=== PATIENT | female | born 1935 | race Caucasian/White ===

== ENCOUNTER 2016-07-14 18:46 | Inpatient (IN) | payer OTHER, MEDICAID ==
[~2016-07-14] VITALS: Ht 152.4 cm; Wt 50.8 kg
[~2016-07-14 18:46] MED LIST: ISOS30TA6 PO; LEVO25TA58 PO; LISI-600 PO; LYR50 PO; OMEP20CA10 PO; SIMV20TA2 PO; TRAM50TA92 PO
[2016-07-14 18:50] VITALS: BP 120/77; PULSE 80; RESP 20; TEMP 98.7; O2SAT 95
[2016-07-14] MEDS ORDERED: NACL 0.9% 1,000 ML IV SCH (19:05)
[2016-07-14] MEDS ORDERED: IPRATROPIUM/ALBUTEROL SULFATE 3 ML AMPUL.NEB INH ONE (19:15)
[2016-07-14] MEDS ORDERED: methylPREDNISolone SOD SUCC/PF 62.5 MG/ML VIAL IVP ONE (19:15)
[2016-07-14 20:19] LABS: BASOPHILS % (AUTO) 0.4 % (0.0-2.0); EOSINOPHILS # (AUTO) 0.1 K/uL (0.0-0.4); EOSINOPHILS % (AUTO) 1.7 % (0.0-4.0); HEMATOCRIT 34.7 % (36-48); HEMOGLOBIN 11.8 g/dL (12.0-16.0); LYMPHOCYTES # (AUTO) 2.1 K/uL (1.0-5.5); LYMPHOCYTES % (AUTO) 28.6 % (20.5-51.5); MEAN CORPUSCULAR HEMOGLOBIN 30 pg (27-31); MEAN CORPUSCULAR HGB CONC 34 % (32-36); MEAN CORPUSCULAR VOLUME 89 fL (79.0-98.0); MONOCYTES # (AUTO) 0.5 K/uL (0.0-1.0); MONOCYTES % (AUTO) 7.3 % (1.7-9.3); NEUTROPHILS # (AUTO) 4.8 K/uL (1.8-7.7); PLATELET COUNT (AUTO) 168 K/uL (130-430); RED BLOOD CELL COUNT(AUTO) 3.88 MIL/uL (4.2-6.2); RED CELL DISTRIBUTION WIDTH 13.6 % (9.0-15.0); WHITE BLOOD COUNT (AUTO) 7.5 K/uL (4.8-10.8)
[2016-07-14 20:28] LABS: ANION GAP 9 (5-15); CALCIUM 9.4 mg/dL (8.4-11.0); CHLORIDE 101 mmol/L (98-107); CREATININE 0.78 mg/dL (0.55-1.30); GLUCOSE 103 mg/dL (70-99); POTASSIUM 3.8 mmol/L (3.5-5.1); SODIUM SERUM 139 mmol/L (136-145); UREA NITROGEN, BLOOD 13 mg/dL (8-21)
[2016-07-14 20:31] LABS: PROTHROMBIN TIME 11.1 SECS (9.5-12.5)
[2016-07-14 20:33] LABS: ALANINE AMINOTRANSFERASE 13 U/L (12-78); ALBUMIN 2.8 g/dL (3.4-4.8); ASPARTATE AMINOTRANSFERASE 13 U/L (10-37); TOTAL BILIRUBIN 0.4 mg/dL (0.0-1.0); TOTAL PROTEIN, SERUM 6.6 g/dL (6.4-8.3)
[2016-07-14] MEDS ORDERED: LEVOFLOXACIN 500 MG/D5W 100 ML IV ONE ×2 (20:45→22:00)
[2016-07-14 21:49] VITALS: BP 124/73; PULSE 82
[2016-07-14] MEDS: methylPREDNISolone SOD SUCC/PF 62.5 MG/ML VIAL IVP SCH (22:00)
[2016-07-14] MEDS: SIMVASTATIN 20 MG TABLET PO SCH (22:37)
[2016-07-14] MEDS: TEMAZEPAM 15 MG CAPSULE PO SCH (22:37)
[2016-07-14] MEDS: ALBUTEROL SULFATE 0.083% 2.5 MG/3 ML VIAL.NEB INH PRN (23:24)
[2016-07-14 23:42] LABS: BILIRUBIN,URINE NEGATIVE (NEGATIVE); BLOOD, URINE NEGATIVE (NEGATIVE); CLARITY/URINE CLEAR (CLEAR); COLOR,URINE YELLOW (YELLOW); GLUCOSE,URINE NEGATIVE (NEGATIVE); KETONES,URINE TRACE (NEGATIVE); LEUKOCYTE ESTERASE ,URINE NEGATIVE (NEGATIVE); NITRITE, URINE NEGATIVE (NEGATIVE); PROTEIN URINE NEGATIVE (NEGATIVE); UROBILINOGEN,URINE 0.2 (0.2-1.0)
[2016-07-15 01:01] VITALS: BP 117/52; PULSE 78; RESP 18; TEMP 98.5; O2SAT 97
[2016-07-15] MEDS: ALBUTEROL SULFATE 0.083% 2.5 MG/3 ML VIAL.NEB INH PRN ×2 (03:51→19:39)
[2016-07-15 04:38] VITALS: BP 112/70; PULSE 70; RESP 16; TEMP 98.9; O2SAT 97
[2016-07-15] MEDS: methylPREDNISolone SOD SUCC/PF 62.5 MG/ML VIAL IVP SCH (06:09)
[2016-07-15] MEDS: LEVOTHYROXINE SODIUM 0.025 MG TABLET PO SCH (06:12)
[2016-07-15 07:24] LABS: HEMATOCRIT 34.9 % (36-48); HEMOGLOBIN 11.6 g/dL (12.0-16.0); MEAN CORPUSCULAR HEMOGLOBIN 31 pg (27-31); MEAN CORPUSCULAR HGB CONC 33 % (32-36); MEAN CORPUSCULAR VOLUME 93 fL (79.0-98.0); PLATELET COUNT (AUTO) 159 K/uL (130-430); RED BLOOD CELL COUNT(AUTO) 3.77 MIL/uL (4.2-6.2); RED CELL DISTRIBUTION WIDTH 13.6 % (9.0-15.0)
[2016-07-15 07:47] LABS: ANION GAP 12 (5-15); CALCIUM 9.2 mg/dL (8.4-11.0); CHLORIDE 98 mmol/L (98-107); CREATININE 0.91 mg/dL (0.55-1.30); FREE T4 (FREE THYROXINE) 1.2 ng/dL (0.6-1.6); GLUCOSE 184 mg/dL (70-99); POTASSIUM 3.3 mmol/L (3.5-5.1); SODIUM SERUM 137 mmol/L (136-145); THYROID STIMULATING HORMONE 0.86 uIu/mL (0.34-4.82); UREA NITROGEN, BLOOD 13 mg/dL (8-21); WHITE BLOOD COUNT (AUTO) 3.8 K/uL (4.8-10.8)
[2016-07-15 08:28] VITALS: BP 113/90; PULSE 89; RESP 16; TEMP 98.7; O2SAT 100
[2016-07-15] MEDS: ISOSORBIDE MONONITRATE 30 MG TAB.ER.24H PO SCH (09:32)
[2016-07-15] MEDS: OMEPRAZOLE 20 MG CAPSULE.DR (PriLOSEC) PO SCH (09:32)
[2016-07-15] MEDS: PREGABALIN 25 MG CAPSULE (LYRICA) PO SCH ×2 (09:32→21:38)
[2016-07-15] MEDS: LISINOPRIL 20 MG TABLET PO SCH (09:32)
[2016-07-15] MEDS: LACTOBACILLUS RHAMNOSUS GG 1 CAP CAPSULE PO SCH ×2 (09:32→21:38)
[2016-07-15 09:44] LABS: ATYPICAL LYMPHOCYTES % 0 % (0-0); BAND % (MANUAL) 2 % (0-6); BASOPHILS % (MANUAL) 0 % (0-2); EOSINOPHILS % (MANUAL) 0 % (0-7); LYMPHOCYTES % (MANUAL) 8 % (20-46); MONOCYTES % (MANUAL) 0 % (0-11)
[2016-07-15] MEDS ORDERED: POTASSIUM CHLORIDE 20 MEQ TAB.PRT.SR PO ONE ×2 (10:15→13:00)
[2016-07-15] MEDS ORDERED: ENOXAPARIN SODIUM 40 MG/0.4 ML SYRINGE SUBCUT ONE (10:30)
[2016-07-15 12:00] VITALS: BP 100/38; PULSE 83; RESP 18; TEMP 97.2; O2SAT 97
[2016-07-15 16:00] VITALS: BP 107/48; PULSE 93; RESP 18; TEMP 97.7; O2SAT 96
[2016-07-15 20:15] VITALS: BP 92/51; PULSE 100; RESP 20; TEMP 98.1; O2SAT 94
[2016-07-15] MEDS: TEMAZEPAM 15 MG CAPSULE PO SCH (21:38)
[2016-07-15] MEDS: SIMVASTATIN 20 MG TABLET PO SCH (21:38)
[2016-07-15] MEDS: LEVOFLOXACIN 250 MG/D5W 50 ML IV SCH (21:38)
[2016-07-16] VITALS: BP 92/32; PULSE 88; RESP 17; TEMP 97.8; O2SAT 95
[2016-07-16 04:34] VITALS: BP 98/48; PULSE 82; RESP 18; TEMP 98.2; O2SAT 96
[2016-07-16] MEDS: LEVOTHYROXINE SODIUM 0.025 MG TABLET PO SCH (06:07)
[2016-07-16 06:56] LABS: HEMATOCRIT 33.4 % (36-48); HEMOGLOBIN 11.2 g/dL (12.0-16.0); MEAN CORPUSCULAR HEMOGLOBIN 31 pg (27-31); MEAN CORPUSCULAR HGB CONC 34 % (32-36); MEAN CORPUSCULAR VOLUME 93 fL (79.0-98.0); PLATELET COUNT (AUTO) 195 K/uL (130-430); RED CELL DISTRIBUTION WIDTH 13.3 % (9.0-15.0)
[2016-07-16 07:05] LABS: ANION GAP 4 (5-15); CALCIUM 9.1 mg/dL (8.4-11.0); CHLORIDE 107 mmol/L (98-107); CREATININE 0.71 mg/dL (0.55-1.30); GLUCOSE 101 mg/dL (70-99); POTASSIUM 4.6 mmol/L (3.5-5.1); SODIUM SERUM 141 mmol/L (136-145); UREA NITROGEN, BLOOD 23 mg/dL (8-21)
[2016-07-16 07:33] LABS: WHITE BLOOD COUNT (AUTO) 9.4 K/uL (4.8-10.8)
[2016-07-16 08:17] VITALS: BP 91/55; PULSE 77; RESP 18; TEMP 97; O2SAT 96
[2016-07-16] MEDS: ISOSORBIDE MONONITRATE 30 MG TAB.ER.24H PO SCH (09:00)
[2016-07-16] MEDS: LISINOPRIL 20 MG TABLET PO SCH (09:00)
[2016-07-16 09:47] LABS: ATYPICAL LYMPHOCYTES % 0 % (0-0); BAND % (MANUAL) 0 % (0-6); BASOPHILS % (MANUAL) 0 % (0-2); EOSINOPHILS % (MANUAL) 0 % (0-7); LYMPHOCYTES % (MANUAL) 14 % (20-46); MONOCYTES % (MANUAL) 5 % (0-11)
[2016-07-16 12:08] VITALS: BP 94/46; PULSE 83; RESP 18; TEMP 96.9; O2SAT 92
[2016-07-16] MEDS: PREDNISONE 20 MG TABLET PO SCH (12:11)
[2016-07-16] MEDS: ENOXAPARIN SODIUM 40 MG/0.4 ML SYRINGE SUBCUT SCH (12:11)
[2016-07-16] MEDS: LACTOBACILLUS RHAMNOSUS GG 1 CAP CAPSULE PO SCH ×2 (12:11→21:31)
[2016-07-16] MEDS: OMEPRAZOLE 20 MG CAPSULE.DR (PriLOSEC) PO SCH (12:11)
[2016-07-16] MEDS: PREGABALIN 25 MG CAPSULE (LYRICA) PO SCH ×2 (12:11→21:30)
[2016-07-16 16:13] VITALS: BP 93/51; PULSE 50; RESP 17; TEMP 97.7; O2SAT 91
[2016-07-16 16:32] VITALS: Ht 152.4 cm; Wt 50.8 kg
[2016-07-16 20:00] VITALS: BP 120/61; PULSE 91; RESP 20; TEMP 97.8; O2SAT 95
[2016-07-16] MEDS: TEMAZEPAM 15 MG CAPSULE PO SCH (21:30)
[2016-07-16] MEDS: SIMVASTATIN 20 MG TABLET PO SCH (21:30)
[2016-07-16] MEDS: traMADol HCL HCL 50 MG TABLET (ULTRAM) PO PRN (21:31)
[2016-07-16] MEDS: LEVOFLOXACIN 250 MG/D5W 50 ML IV SCH (23:15)
[2016-07-17] VITALS (8 sets, daily range): BP systolic 90–126; BP diastolic 37–63; PULSE 70–91; RESP 18–20; TEMP 96.6–98; O2SAT 93–98
[2016-07-17] MEDS: LEVOTHYROXINE SODIUM 0.025 MG TABLET PO SCH (06:11)
[2016-07-17] MEDS: traMADol HCL HCL 50 MG TABLET (ULTRAM) PO PRN ×2 (07:56→21:30)
[2016-07-17] MEDS: ENOXAPARIN SODIUM 40 MG/0.4 ML SYRINGE SUBCUT SCH ×2 (09:00→10:13)
[2016-07-17] MEDS: PREDNISONE 20 MG TABLET PO SCH (10:10)
[2016-07-17] MEDS: OMEPRAZOLE 20 MG CAPSULE.DR (PriLOSEC) PO SCH (10:10)
[2016-07-17] MEDS: LACTOBACILLUS RHAMNOSUS GG 1 CAP CAPSULE PO SCH ×2 (10:10→21:29)
[2016-07-17] MEDS: PREGABALIN 25 MG CAPSULE (LYRICA) PO SCH ×2 (10:11→21:30)
[2016-07-17] MEDS: LISINOPRIL 20 MG TABLET PO SCH (10:13)
[2016-07-17] MEDS: ISOSORBIDE MONONITRATE 30 MG TAB.ER.24H PO SCH (10:14)
[2016-07-17] MEDS: LEVOFLOXACIN 250 MG/D5W 50 ML IV SCH (21:29)
[2016-07-17] MEDS: SIMVASTATIN 20 MG TABLET PO SCH (21:30)
[2016-07-17] MEDS: TEMAZEPAM 15 MG CAPSULE PO SCH (21:30)
[2016-07-18] VITALS (7 sets, daily range): BP systolic 97–117; BP diastolic 52–62; PULSE 64–74; RESP 16–18; TEMP 96.8–98; O2SAT 93–97
[2016-07-18] MEDS: LEVOTHYROXINE SODIUM 0.025 MG TABLET PO SCH (06:11)
[2016-07-18] MEDS: ENOXAPARIN SODIUM 40 MG/0.4 ML SYRINGE SUBCUT SCH (09:47)
[2016-07-18] MEDS: OMEPRAZOLE 20 MG CAPSULE.DR (PriLOSEC) PO SCH (09:48)
[2016-07-18] MEDS: PREGABALIN 25 MG CAPSULE (LYRICA) PO SCH (09:48)
[2016-07-18] MEDS: ISOSORBIDE MONONITRATE 30 MG TAB.ER.24H PO SCH (09:48)
[2016-07-18] MEDS: LACTOBACILLUS RHAMNOSUS GG 1 CAP CAPSULE PO SCH (09:48)
[2016-07-18] MEDS: LISINOPRIL 20 MG TABLET PO SCH (09:49)
[2016-07-18] MEDS: PREDNISONE 20 MG TABLET PO SCH (09:49)
== END 2016-07-18 21:28 | disposition home health service (06) | DRG 190 ==
LOC: SED 18:46 → STU 20:55 → SMU 07-16 18:08
PROVIDERS: ADMIT Internal Medicine; ATTEND Internal Medicine
DX: J44.1 Chronic obstructive pulmonary disease with (acute) exacerbation (principal); E43 Unspecified severe protein-calorie malnutrition; J44.0 Chronic obstructive pulmonary disease with (acute) lower respiratory infection; J20.9 Acute bronchitis, unspecified; I10 Essential (primary) hypertension; G89.29 Other chronic pain; F03.90 Unspecified dementia, unspecified severity, without behavioral disturbance, psychotic disturbance, mood disturbance, and anxiety; E78.5 Hyperlipidemia, unspecified; E03.9 Hypothyroidism, unspecified; D64.9 Anemia, unspecified; K21.9 Gastro-esophageal reflux disease without esophagitis; Z96.611 Presence of right artificial shoulder joint; Z96.651 Presence of right artificial knee joint; M54.9 Dorsalgia, unspecified; Z68.21 Body mass index [BMI] 21.0-21.9, adult; Z88.6 Allergy status to analgesic agent; Z88.1 Allergy status to other antibiotic agents; Z88.0 Allergy status to penicillin; Z88.8 Allergy status to other drugs, medicaments and biological substances; Z87.891 Personal history of nicotine dependence; Z79.899 Other long term (current) drug therapy; Z87.440 Personal history of urinary (tract) infections
CPT/HCPCS: 36415; 71010; 80048; 80053; 81003; 83605; 84439; 84443-TC; 85007; 85025; 85027; 85610-TC; 85730-TC; 87040-TC; 87081; 92610-GN; 93005; 94640; 94760; 96361; 96374; 97110-GP; 97116-GP; 97530-GP; 99285; J1650; J1956; J2930; J7030; J7512

== ENCOUNTER 2017-06-16 14:33 | Emergency (ER) | payer OTHER, MEDICAID ==
[~2017-06-16] VITALS: Ht 152.4 cm; Wt 49.9 kg
[2017-06-16 14:35] VITALS: BP_SYST 130
--- NOTE | 2017-06-16 14:40 | NUR ---
ER at bedside examining patient.
--- NOTE | 2017-06-16 14:45 | NUR ---
Pt presents to ER c/o pain to L hand and L hip. EMT's state that pt fell out of chair. Pt reports pain level 5/10. Pt denies loss of consciousness, chest pain, sob. Pt comes from [facility]. Pt in no acute distress, AOX4, allergies noted.
--- NOTE | 2017-06-16 15:17 | NUR ---
SPOKE WITH NANCY AT [facility] AND [facility], UNABLE TO PROVIDE ANY TRANSPORTATION. NANCY STATES THAT SHE USUALLY GOES TO AND FROM HOSPITAL IN AMBULANCE.
[2017-06-16 16:00] VITALS: BP_SYST 130
--- NOTE | 2017-06-16 16:00 | NUR ---
Note undone in EDM - 06/16/17 at 1943 by [email or web address] Patient given written and verbal discharge instructions and verbalizes understanding. ER discussed with patient the results and treatment provided. Patient in stable condition. ID arm band removed. No Rx given. Patient educated on pain management and to follow up with PMD. Pain Scale 3/10. Opportunity for questions provided and answered.
--- NOTE | 2017-06-16 16:00 | NUR ---
Patient unable to sign discharge paperwork but given verbal discharge instructions and verbalizes understanding. ER MD discussed with patient the results and treatment provided. Patient in stable condition. ID arm band removed. No Rx given. Patient educated on pain management and to follow up with PMD. Pain Scale 3/10. Opportunity for questions provided and answered.
== END 2017-06-16 16:00 | disposition home or self-care (01) ==
LOC: SED 14:33
DX: S70.02XA Contusion of left hip, initial encounter (principal); K21.9 Gastro-esophageal reflux disease without esophagitis; I10 Essential (primary) hypertension; E03.9 Hypothyroidism, unspecified; F03.90 Unspecified dementia, unspecified severity, without behavioral disturbance, psychotic disturbance, mood disturbance, and anxiety; Z88.0 Allergy status to penicillin; Z88.1 Allergy status to other antibiotic agents; Z88.2 Allergy status to sulfonamides; Z88.5 Allergy status to narcotic agent; Z88.8 Allergy status to other drugs, medicaments and biological substances; Z79.899 Other long term (current) drug therapy; W01.0XXA Fall on same level from slipping, tripping and stumbling without subsequent striking against object, initial encounter; Y93.89 Activity, other specified; Y92.89 Other specified places as the place of occurrence of the external cause; Y99.8 Other external cause status; S09.90XA Unspecified injury of head, initial encounter
CPT/HCPCS: 72170-TC; 99284